=== PATIENT | female | born 1955 | race Caucasian/White ===

== ENCOUNTER 2017-01-21 10:43 | Emergency (ER) | payer MEDICAID ==
--- NOTE | 2017-01-21 11:33 | ER Document Report ---
HPI - HPI Patient complains to provider of: Infected left foot Onset: Other - Saturday Onset/Duration: Gradual, Worse Pain Level: 3 Context: 61-year-old nondiabetic with a history of MRSA stepped on a metal prong of the air conditioning unit and punctured the plantar surface of her left mid foot on Saturday. It is draining and has some red streaking towards the arch now. No fever. Associated Symptoms: None Exacerbated by: Walking Relieved by: Denies Similar symptoms previously: No Recently seen / treated by doctor: No - ROS ROS below otherwise negative: Yes Systems Reviewed and Negative: Yes All other systems reviewed and negative - REPRODUCTIVE Reproductive: DENIES: : - DERM Skin Color: Normal Past Medical History - General Information source: Patient - Social History Smoking Status: Current Every Day Smoker Frequency of alcohol use: None Drug Abuse: None Lives with: Family Family History: Malignancy Patient has suicidal ideation: No Patient has homicidal ideation: No Pulmonary Medical History: Reports: Hx Bronchitis Renal/ Medical History: Reports: Hx Kidney Stones Malignancy Medical History: Reports: Hx Skin Cancer Musculoskeltal Medical History: Reports Hx Musculoskeletal Trauma Traumatic Medical History: Reports: Hx Fractures - finger Infectious Medical History: Reports: Hx MRSA Past Surgical History: Reports: Hx Section, Hx Cholecystectomy - Immunizations Immunizations up to date: No Hx Diphtheria, Pertussis, Tetanus Vaccination: No Vertical Provider Document - CONSTITUTIONAL Agree With Documented VS: Yes Exam Limitations: No Limitations - INFECTION CONTROL TRAVEL OUTSIDE OF THE [place] IN LAST 30 DAYS: No - HEENT HEENT: Normocephalic - NECK Neck: Supple - MUSCULOSKELETAL/EXTREMETIES Musculoskeletal/Extremeties: MAEW, FROM, Tender - weeping puncture lesion plantar left foot with induration 2 cm surrounding and pink inflammation, medial foot lymphangitis to arch only - NEURO Level of Consciousness: Awake, Alert, Appropriate Course - Re-evaluation Re-evalutation: 01/21/17 13:30 X-ray is negative per rad Procedure: Dated 9 prep and sterile field, #11 blade excision of devitalized tissue to get to the base of the puncture wound and healthy tissue, normal saline irrigation, corner of 4 x 4 packing into the 3 mm round by 3 mm deep wound, no pus. Discharge - Discharge Clinical Impression: Puncture wound of plantar aspect of left foot with infection Qualifiers: Encounter type: initial encounter Qualified Code(s): S91.332A - Puncture wound without foreign body, left foot, initial encounter Condition: Good Disposition: HOME, SELF-CARE Instructions: Acetaminophen, Anti-Inflammatory Medication ([facility]), Cellulitis ( [facility]), Cephalexin ([facility]), Use of Crutches ([facility]), Puncture Wound ([facility]), Trimethoprim-Sulfa ([facility]) Additional Instructions: soak foot in epsom salt 30mintues twice a day, warm water redress with dry gauze inside the wound crutches take both antibiotics return to er for wound check in 48 hours Please complete the patient satisfaction survey if you get one, and return it.. If you do not receive a survey, then you can go to the [facility] website, [email or web address] and place your comments about your very good care. Thank you very much. It was a pleasure being your medical provider today. Prescriptions: Cephalexin Monohydrate [Keflex 500 mg Capsule] 500 mg PO QID #28 capsule Ibuprofen [Motrin 800 mg Tablet] 800 mg PO Q8H PRN #30 tab PRN Reason: Sulfamethoxazole/Trimethoprim [Sulfamethoxazole-Tmp Ds Tablet] 1 each PO BID # 14 tablet
[2017-01-21 11:37] VITALS: BP 131/76
[2017-01-21] MEDS ORDERED: SULFAMETHOXAZOLE/TRIMETHOPRIM 800-160 MG TABLET PO ONE (11:45)
--- NOTE | 2017-01-21 12:37 | RADIOLOGY REPORT (SQ) ---
EXAM DESCRIPTION: FOOT LEFT COMPLETE COMPLETED DATE/TIME: 01/21/2017 12:08 pm REASON FOR STUDY: possible foreign body COMPARISON: None. NUMBER OF VIEWS: Three views. TECHNIQUE: AP, lateral and oblique radiographic images acquired of the left foot. LIMITATIONS: None. FINDINGS: MINERALIZATION: Normal. BONES: Old proximal metatarsal fractures. No acute fracture or dislocation. No worrisome bone lesio ns. JOINTS: No effusions. SOFT TISSUES: No soft tissue swelling. No foreign body. OTHER: No other significant finding. IMPRESSION: No foreign body. TECHNICAL DOCUMENTATION: JOB ID: [id number] [employer]- All Rights Reserved
[2017-01-21] MEDS ORDERED: DIPH/PERTUSS(ACELL)/TETANUS VAC/PF 0.5 ML SYR (>=10YO) IM ONE (13:19)
[2017-01-21] MEDS ORDERED: CEPHALEXIN 500 MG CAPSULE PO ONE (13:32)
== END 2017-01-21 13:55 | disposition home or self-care (01) ==
LOC: ER 10:43
PROC: 0JBR0ZZ Excision of Left Foot Subcutaneous Tissue and Fascia, Open Approach (ICD-10-PCS; principal; 2017-01-21)
DX: S91.332A Puncture wound without foreign body, left foot, initial encounter (principal); W22.09XA Striking against other stationary object, initial encounter; F17.200 Nicotine dependence, unspecified, uncomplicated; Z86.14 Personal history of Methicillin resistant Staphylococcus aureus infection; Z90.49 Acquired absence of other specified parts of digestive tract; Z87.442 Personal history of urinary calculi; Z23 Encounter for immunization
CPT/HCPCS: 99283; 90471; 73630; 90715; 20103; J3490